=== PATIENT | female | born 1985 | race African-American/Black ===

== ENCOUNTER 2020-01-23 09:58 | Emergency (ER) | payer OTHER ==
[~2020-01-23] VITALS: Ht 180.3 cm; Wt 104.3 kg
[~2020-01-23 09:58] MED LIST: BACTRIM-DS1 EA ORAL; CEPHALEXIN500 MG ORAL; CYCLOBENZAPRINE10 MG ORAL; IBUPROFEN600 MG ORAL; NITROFURANTOIN100 M2 ORAL; NKM; NORCO 5-325 TA1 EACH ORAL
[2020-01-23 10:33] VITALS: BP 132/86
--- NOTE | 2020-01-23 10:35 | Emergency Room Report ---
History of Present Illness General Chief Complaint: Upper Respiratory Illness Source: Patient Present Illness HPI 34-year-old otherwise healthy female here with sore throat and nasal congestion for 2 days. Patient does not know if she has been exposed anybody who has been sick but she has been going to work and has been near several other people. Denies vision change, , chest pain, palpitations, shortness of breath, back pain, abdominal pain, nausea, vomiting, diarrhea, dysuria. Has had a subjective headache and said her temperature was 99.5 F last night. 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 Nursing Documentation-[facility] Past Medical History: No Stated History Hx Hypertension: No Hx Diabetes: No Hx Neurological Problems: No - L4 Laminectomy in 07/2014 Review of Systems All Other Systems: negative except mentioned in HPI Physical Exam Vital Signs Date Time Temp Pulse Resp B/P (MAP) Pulse Ox O2 Delivery O2 Flow Rate FiO2 01/23/20 10:07 99.9 102 18 139/89 (106) 98 Sp02 EP Interpretation: reviewed, normal General Appearance: no apparent distress, alert, non-toxic Head: normocephalic, atraumatic Eyes: bilateral eye normal inspection, bilateral eye PERRL ENT: hearing grossly normal, normal pharynx, no angioedema, normal voice Neck: full range of motion, supple/symm/no masses Respiratory: chest non-tender, lungs clear, normal breath sounds, speaking full sentences Cardiovascular #1: regular rate, rhythm, no edema Cardiovascular #2: 2+ carotid (R), 2+ carotid (L), 2+ radial (R), 2+ radial (L), 2+ dorsalis pedis (R), 2+ dorsalis pedis (L) Gastrointestinal: normal bowel sounds, non tender, soft, non-distended, no guarding, no rebound Rectal: deferred Genitourinary: normal inspection, no CVA tenderness Musculoskeletal: back normal, normal range of motion, calf tenderness, gait/station normal, non-tender Neurologic: alert, motor strength/tone normal, oriented x3, sensory intact, responsive, speech normal Psychiatric: judgement/insight normal, memory normal, mood/affect normal, no suicidal/homicidal ideation Reflexes: 3+ bicep (R), 3+ bicep (L), 3+ tricep (R), 3+ tricep (L), 3+ knee (R), 3+ knee (L) Lymphatic: no adenopathy Medical Decision Making Diagnostic Impression: Primary Impression: URI (upper respiratory infection) Additional Impression: Suspected COVID-19 virus infection ER Course Patient here with URI symptoms. Patient was well-appearing and did not have any vital sign abnormalities. Normal oxygen saturation. Patient was told to follow-up with primary care physician or go to an outpatient testing center to be tested for COVID-19. No indication for testing at this time in the emergency department given well appearance. Was told to come back to the emergency department if any worsening shortness of breath, fevers, nausea, vomiting. Expressed understanding and was discharged. Last Vital Signs Date Time Temp Pulse Resp B/P (MAP) Pulse Ox O2 Delivery O2 Flow Rate FiO2 01/23/20 10:07 99.9 102 18 139/89 (106) 98 Scripts Azithromycin* (ZITHROMAX*) 250 Mg Tablet 250 MG ORAL DAILY, #6 TAB 0 Refills Take two tables once daily for 1 day, then one tablet once daily for 4 days. Prov: Wallace Alexander M.D. 01/23/20 Referrals: [facility] (PCP) Wallace Alexander M.D. Jan 23, 2020 10:35
[2020-01-23] MEDS ORDERED: ZITHROMAX250 MG ORAL (10:51)
[2020-01-23 11:09] VITALS: BP 130/84
--- NOTE | 2020-01-23 13:10 | Diagnostic Imaging Report ---
Indication: Reason For Exam: COUGH Technique: Single AP view of the chest. Comparison: None. Findings: Heart is not enlarged when accounting for projection and technique. There is mild diffuse bronchial thickening. There is no focal consolidation, pneumothorax or pleural effusion. Osseous structures demonstrate no acute abnormality. IMPRESSION: Diffuse peribronchial thickening, which is nonspecific but can be seen with infectious/inflammatory airways disease or a typical/viral pneumonia in the appropriate clinical context.
== END 2020-01-23 11:10 | disposition home or self-care (01) ==
LOC: EMR 10:20
DX: J06.9 Acute upper respiratory infection, unspecified (principal); J02.9 Acute pharyngitis, unspecified; R09.81 Nasal congestion; Z20.828 Contact with and (suspected) exposure to other viral communicable diseases
CPT/HCPCS: 71045; 81025; J8540; Z7502; 99283